=== PATIENT | male | born 1950 | race Native Hawaiian/Other Pacific Islander ===

== ENCOUNTER 2020-09-20 10:11 | Emergency (ER) | payer BC ==
[~2020-09-20] VITALS: Ht 180.3 cm; Wt 86.2 kg
[2020-09-20 11:36] LABS: PLATELET COUNT 196 K/uL (142-355)
[2020-09-20 11:48] LABS: POTASSIUM 3.9 mmol/L (3.6-5.2); SODIUM 143 mmol/L (136-145)
[2020-09-20 12:00] LABS: PARTIAL THROMBOPLASTIN TIME 23.4 SECONDS (24.5-33.6)
[2020-09-20 12:49] VITALS: BP 163/85; TEMP 97.8
== END 2020-09-20 12:49 | disposition home or self-care (01) ==
LOC: ED 10:11
PROVIDERS: Family Medicine
DX: I20.9 Angina pectoris, unspecified (principal)
CPT/HCPCS: 80053; 84484; 85027; 85610; 85730; 99283

== ENCOUNTER 2021-07-14 19:26 | Emergency (ER) | payer BC ==
[~2021-07-14] VITALS: Ht 177.8 cm; Wt 88.5 kg
[2021-07-14 20:39] VITALS: BP 154/93; TEMP 98
== END 2021-07-14 20:39 | disposition home or self-care (01) ==
LOC: ED 19:26
DX: S61.244A Puncture wound with foreign body of right ring finger without damage to nail, initial encounter (principal); W45.8XXA Other foreign body or object entering through skin, initial encounter; Y92.89 Other specified places as the place of occurrence of the external cause
CPT/HCPCS: 99283; J2001

== ENCOUNTER 2022-05-22 08:52 | Outpatient (CLI) | payer BC | END 2022-05-22 20:35 | disposition home or self-care (01) | LOC: CT 08:52 | PROVIDERS: ATTEND Internal Medicine | DX: R10.32 Left lower quadrant pain (principal); R10.12 Left upper quadrant pain; R39.12 Poor urinary stream | CPT/HCPCS: 36415; 82565; 84520; Q9963 ==

== ENCOUNTER 2022-06-10 09:39 | Outpatient (CLI) | payer BC | END 2022-06-10 19:03 | disposition home or self-care (01) | LOC: US 09:39 | PROVIDERS: ATTEND Internal Medicine | DX: R16.1 Splenomegaly, not elsewhere classified (principal) ==

== ENCOUNTER 2022-06-19 12:11 | Outpatient (CLI) | payer BC | END 2022-06-19 19:17 | disposition home or self-care (01) | LOC: MRI 12:11 | PROVIDERS: ATTEND Internal Medicine | DX: R16.1 Splenomegaly, not elsewhere classified (principal) | CPT/HCPCS: A9576 ==